=== PATIENT | female | born 1950 | race Two or more races ===

== ENCOUNTER → 2018-05-18 | Outpatient (CLI) | payer OTHER | END | disposition home or self-care (01) | LOC: RAD 16:29 | DX: S80.02XA Contusion of left knee, initial encounter (principal) ==

== ENCOUNTER 2019-01-14 14:13 | Outpatient (CLI) | payer OTHER | END 2019-01-14 14:39 | disposition home or self-care (01) | LOC: MAMO-SONO 14:13 | DX: Z12.31 Encounter for screening mammogram for malignant neoplasm of breast (principal); Z87.898 Personal history of other specified conditions; Z12.2 Encounter for screening for malignant neoplasm of respiratory organs; N60.11 Diffuse cystic mastopathy of right breast; N60.12 Diffuse cystic mastopathy of left breast ==

== ENCOUNTER → 2019-03-29 | Outpatient (CLI) | payer OTHER | END | disposition home or self-care (01) | LOC: RAD 11:33 | DX: R06.09 Other forms of dyspnea (principal); J43.8 Other emphysema ==

== ENCOUNTER 2019-05-30 12:23 | Outpatient (CLI) | payer OTHER | END 2019-05-30 15:27 | disposition home or self-care (01) | LOC: SONOGRAMA 12:23 | DX: N60.11 Diffuse cystic mastopathy of right breast (principal); N60.12 Diffuse cystic mastopathy of left breast; N63.21 Unspecified lump in the left breast, upper outer quadrant ==

== ENCOUNTER 2019-08-24 12:40 | Outpatient (CLI) | payer OTHER | END 2019-08-24 12:45 | disposition home or self-care (01) | LOC: SONOGRAMA 12:40 | DX: N60.11 Diffuse cystic mastopathy of right breast (principal); N60.12 Diffuse cystic mastopathy of left breast ==

== ENCOUNTER 2020-04-30 08:35 | Outpatient (CLI) | payer OTHER | END 2020-04-30 08:45 | disposition home or self-care (01) | LOC: MAMO-SONO 08:35 | PROVIDERS: ATTEND Surgery | DX: N60.11 Diffuse cystic mastopathy of right breast (principal); N60.12 Diffuse cystic mastopathy of left breast ==

== ENCOUNTER 2020-07-19 08:16 | Outpatient (CLI) | payer OTHER | END 2020-07-19 16:48 | disposition home or self-care (01) | LOC: RAD 08:16 | DX: J43.8 Other emphysema (principal); Z11.59 Encounter for screening for other viral diseases ==

== ENCOUNTER 2020-07-27 14:07 | Outpatient (CLI) | payer OTHER | END 2020-07-27 14:19 | disposition home or self-care (01) | LOC: SONOGRAMA 14:07 | PROVIDERS: ATTEND Surgery | DX: D24.2 Benign neoplasm of left breast (principal); D24.1 Benign neoplasm of right breast; R92.0 Mammographic microcalcification found on diagnostic imaging of breast ==

== ENCOUNTER 2020-12-03 08:57 | Outpatient (CLI) | payer OTHER | END 2020-12-03 09:07 | disposition home or self-care (01) | LOC: SONOGRAMA 08:57 | PROVIDERS: ATTEND Surgery | DX: N60.11 Diffuse cystic mastopathy of right breast (principal); N60.12 Diffuse cystic mastopathy of left breast; R07.89 Other chest pain; J43.8 Other emphysema ==

== ENCOUNTER 2021-01-02 10:06 | Outpatient (CLI) | payer OTHER | END 2021-01-02 10:12 | disposition home or self-care (01) | LOC: RAD 10:06 | PROVIDERS: ATTEND Orthopaedic Surgery | DX: M25.561 Pain in right knee (principal) ==

== ENCOUNTER 2021-02-23 09:25 | Outpatient (CLI) | payer OTHER | END 2021-02-23 09:29 | disposition home or self-care (01) | LOC: RAD 09:25 | PROVIDERS: ATTEND Orthopaedic Surgery | DX: M25.561 Pain in right knee (principal); M25.562 Pain in left knee ==

== ENCOUNTER → 2022-10-31 | Outpatient (CLI) | payer OTHER | END | disposition home or self-care (01) | LOC: MAMO-SONO 13:38 | DX: N61.0 Mastitis without abscess (principal); E03.9 Hypothyroidism, unspecified; J44.9 Chronic obstructive pulmonary disease, unspecified; I11.9 Hypertensive heart disease without heart failure; E11.9 Type 2 diabetes mellitus without complications ==

== ENCOUNTER → 2022-11-26 | Outpatient (CLI) | payer OTHER | END | disposition home or self-care (01) | LOC: NUCLEAR 11-05 13:15 | DX: M81.0 Age-related osteoporosis without current pathological fracture (principal) ==

== ENCOUNTER 2023-11-19 10:46 | Outpatient (CLI) | payer OTHER | END 2023-11-19 10:54 | disposition home or self-care (01) | LOC: RAD 10:46 | PROVIDERS: ATTEND General Practice | DX: I10 Essential (primary) hypertension (principal); J31.0 Chronic rhinitis; R07.9 Chest pain, unspecified ==

== ENCOUNTER 2024-08-02 09:43 | Outpatient (CLI) | payer OTHER | END 2024-08-02 09:48 | disposition home or self-care (01) | LOC: MAMO-SONO 09:43 | PROVIDERS: ATTEND General Practice | DX: Z12.31 Encounter for screening mammogram for malignant neoplasm of breast (principal); Z12.39 Encounter for other screening for malignant neoplasm of breast; M85.9 Disorder of bone density and structure, unspecified ==

== ENCOUNTER → 2024-12-21 10:29 | Outpatient (CLI) | payer OTHER | END | disposition home or self-care (01) | LOC: NUCLEAR 12-08 11:00 | PROVIDERS: ATTEND General Practice | DX: M85.9 Disorder of bone density and structure, unspecified (principal); M81.0 Age-related osteoporosis without current pathological fracture ==

== ENCOUNTER 2025-03-22 09:10 | Outpatient (CLI) | payer OTHER | END 2025-03-22 09:17 | disposition home or self-care (01) | LOC: RAD 09:10 | PROVIDERS: ATTEND General Practice | DX: E03.9 Hypothyroidism, unspecified (principal); J44.9 Chronic obstructive pulmonary disease, unspecified; I11.9 Hypertensive heart disease without heart failure; Z68.26 Body mass index [BMI] 26.0-26.9, adult; Z96.1 Presence of intraocular lens; Z00.8 Encounter for other general examination; M25.561 Pain in right knee; M25.562 Pain in left knee; M25.511 Pain in right shoulder; M25.512 Pain in left shoulder ==